=== PATIENT | male | born 1935 | race Caucasian/White ===

== ENCOUNTER 2021-08-19 16:40 | Emergency (ER) | payer MEDICARE ==
[~2021-08-19] VITALS: Ht 170.1 cm; Wt 73.5 kg
[2021-08-19] MEDS ORDERED: TERBINAFINE250 MG PO (17:33)
[2021-08-19] MEDS ORDERED: NYAMYC15 GM T (17:46)
[2021-08-19 17:52] LABS: ALBUMIN 3.2 gm/dl (3.1-4.5); ALKALINE PHOSPHATASE 109 U/L (45-117); BUN 17 mg/dl (7-24); CHLORIDE 104 mmol/L (98-107); CREATININE 1.12 mg/dL (0.70-1.30); POTASSIUM 3.4 mmol/L (3.5-5.1); SGOT/AST 40 IU/L (3-35); SGPT/ALT 55 U/L (12-78); SODIUM 139 mmol/L (136-145); TOTAL PROTEIN 7.6 gm/dL (6.4-8.2)
== END 2021-08-19 18:33 | disposition home or self-care (01) ==
LOC: ED 16:40
PROVIDERS: Student in an Organized Health Care Education/Training Program
DX: B35.6 Tinea cruris (principal); B35.4 Tinea corporis

== ENCOUNTER 2021-09-07 13:04 | Emergency (ER) | payer MEDICARE ==
[~2021-09-07] VITALS: Ht 170.1 cm; Wt 74.8 kg
[~2021-09-07 13:04] MED LIST: NYAMYC15 GM T; TERBINAFINE250 MG PO
[2021-09-07] MEDS ORDERED: ANTIFUNGAL113 GM T ×2 (14:48→14:50)
== END 2021-09-07 14:55 | disposition home or self-care (01) ==
LOC: ED 13:04
DX: B37.49 Other urogenital candidiasis (principal)